=== PATIENT | female | born 1985 | race Caucasian/White ===

== ENCOUNTER → 2016-09-03 | Outpatient (CLI) | payer OTHER ==
[~2016-09-03] MED LIST: PRENTAB26 PO
[2016-09-03 13:03] LABS: URINE APPEARANCE TURBID (CLEAR); URINE BILIRUBIN NEG (NEG); URINE COLOR YELLOW; URINE EPITHELIAL CELL AUTO >30 /lpf (0-5); URINE NITRITE NEG (NEG); URINE SPECIFIC GRAVITY 1.024 (1.000-1.030); UROBILINOGEN NEG (NEG)
[2016-09-03 13:10] LABS: MANUAL MICROSCOPIC REQUIRED? NO; REVIEW REQ? NO
== END | disposition home or self-care (01) ==
LOC: C.LABSPEC 11:14
PROVIDERS: ATTEND Obstetrics & Gynecology
DX: Z34.90 Encounter for supervision of normal pregnancy, unspecified, unspecified trimester (principal)

== ENCOUNTER → 2016-09-10 | Outpatient (CLI) | payer OTHER ==
[2016-09-10 11:46] LABS: BASO % 0.1 %; BASO ABS # 0.01 K/uL (0-0.2); COMPLETE YES; EOS % 0.4 %; IG% 0.1 %; LYMPH % 21.1 %; LYMPH ABS # 1.42 K/uL (1.2-3.4); MEAN CORPUSCULAR HEMOGLOBIN 28.8 pg (25-34); MEAN CORPUSCULAR HGB CONC 33.8 g/dl (32-36); MEAN PLATELET VOLUME 9.9 fL (7.4-10.4); MONO % 6.8 %; NEUT % 71.5 %; PLATELET COUNT 262 K/uL (130-400); RED BLOOD COUNT 4.59 M/uL (4.2-5.4); WHITE BLOOD COUNT 6.73 K/uL (4.8-10.8)
[2016-09-12 03:42] LABS: CHLAMYDIA TRACH RNA*** NOT DETECTED (NOT DETECTED); GC (NEIS GONORRHOEAE)RNA** NOT DETECTED (NOT DETECTED)
== END | disposition home or self-care (01) ==
LOC: C.LAB1850 10:43
PROVIDERS: ATTEND Obstetrics & Gynecology
DX: Z34.90 Encounter for supervision of normal pregnancy, unspecified, unspecified trimester (principal)

== ENCOUNTER → 2016-09-10 | Outpatient (CLI) | payer OTHER | END | disposition home or self-care (01) | LOC: C.PAPS 14:11 | PROVIDERS: ATTEND Obstetrics & Gynecology | DX: Z34.90 Encounter for supervision of normal pregnancy, unspecified, unspecified trimester (principal) ==

== ENCOUNTER → 2016-11-05 | Outpatient (CLI) | payer OTHER ==
[2016-11-05 14:25] LABS: GTGD 50 Grams
== END | disposition home or self-care (01) ==
LOC: C.LAB1850 11:38
PROVIDERS: ATTEND Obstetrics & Gynecology
DX: Z34.82 Encounter for supervision of other normal pregnancy, second trimester (principal)

== ENCOUNTER → 2017-01-28 | Outpatient (CLI) | payer OTHER ==
[2017-01-28 12:22] LABS: HEMATOCRIT 36.6 % (37-47)
[2017-01-28 12:27] LABS: URINE APPEARANCE CLEAR (CLEAR); URINE BILIRUBIN NEG (NEG); URINE COLOR YELLOW; URINE EPITHELIAL CELL AUTO >30 /lpf (0-5); URINE NITRITE NEG (NEG); URINE SPECIFIC GRAVITY 1.014 (1.000-1.030); UROBILINOGEN NEG (NEG)
[2017-01-28 12:37] LABS: MANUAL MICROSCOPIC REQUIRED? NO; REVIEW REQ? NO
[2017-01-28 15:04] LABS: GTGD 50 Grams
== END | disposition home or self-care (01) ==
LOC: C.LAB1850 09:48
PROVIDERS: ATTEND Obstetrics & Gynecology
DX: Z34.82 Encounter for supervision of other normal pregnancy, second trimester (principal)

== ENCOUNTER 2017-04-18 07:04 | Inpatient (IN) | payer OTHER ==
[~2017-04-18] VITALS: Ht 175.3 cm; Wt 126.4 kg
[2017-04-18] MEDS ORDERED: LACTATED RINGER'S 1000ML 1,000 ML IV PRN (07:44)
[2017-04-18] MEDS ORDERED: LACTATED RINGER'S 1000ML 1,000 ML IV SCH (07:44)
[2017-04-18] MEDS ORDERED: PENICILLIN G POTASSIUM IV 3 MU in DEXTROSE 5% 100ML 100 ML IV PRN (07:45)
[2017-04-18] MEDS ORDERED: BUPIVACAINE 0.25% 30 ML VIAL ONE (07:51)
[2017-04-18] MEDS ORDERED: EpHEDrine SULFATE INJ 50 MG/ML AMP ONE (07:51)
[2017-04-18] MEDS ORDERED: FENTANYL 2MCG/ML ROPIV 1.25MG/ML 100ML BAG EPI ONE (07:52)
[2017-04-18] MEDS ORDERED: PENICILLIN G POTASSIUM IV 6 MU in DEXTROSE 5% 250ML 250 ML IV SCH (08:00)
[2017-04-18] MEDS: FENTANYL CITRATE INJ 50 MCG/1 ML 2 ML VIAL ONE ×2 (08:12→09:20)
[2017-04-18 08:15] LABS: HEMATOCRIT 37.3 % (37-47); MEAN CELL VOLUME 81.6 fL (80-100); MEAN CORPUSCULAR HEMOGLOBIN 28.2 pg (25-34); MEAN CORPUSCULAR HGB CONC 34.6 g/dl (32-36); MEAN PLATELET VOLUME 10.1 fL (7.4-10.4); PLATELET COUNT 231 K/uL (130-400); RED BLOOD COUNT 4.57 M/uL (4.2-5.4)
[2017-04-18 08:32] VITALS: Ht 175.3 cm; Wt 126.4 kg
[2017-04-18] MEDS ORDERED: NALOXONE HCL INJ 1 MG in SODIUM CHLORIDE 0.9% 1000ML 1,000 ML IV PRN (08:47)
[2017-04-18] MEDS ORDERED: LACTATED RINGER'S 1000ML 500 ML IV PRN (08:47)
[2017-04-18] MEDS ORDERED: PROMETHAZINE HCL INJ 6.25 MG in SODIUM CHLORIDE 0.9% 50ML 50 ML IV PRN (09:00)
[2017-04-18] MEDS ORDERED: NALOXONE HCL 0.4 MG/1 ML VIAL/CARP IV PRN (09:00)
[2017-04-18] MEDS ORDERED: DiphenhydrAMINE HCL 50 MG/ML VIAL IV PRN (09:00)
[2017-04-18] MEDS ORDERED: FENTANYL 2MCG/ML ROPIV 1.25MG/ML 100ML BAG EPI PRN (09:00)
[2017-04-18] MEDS ORDERED: ONDANSETRON INJ 2 MG/ML 2 ML VIAL IV PRN (09:00)
[2017-04-18] MEDS ORDERED: EpHEDrine SULFATE INJ 50 MG/ML AMP IV PRN (09:00)
[2017-04-18] MEDS ORDERED: NALBUPHINE HCL INJ 10 MG/ML AMP IV PRN (09:00)
[2017-04-18] MEDS ORDERED: ONDANSETRON INJ 2 MG/ML 2 ML VIAL ONE (10:02)
[2017-04-18] MEDS ORDERED: NURSING VERBAL MED ORDER ONE (10:15)
[2017-04-18] MEDS ORDERED: ACETAMINOPHEN/CODEINE 300/30MG TAB PO PRN ×2 (10:30)
[2017-04-18] MEDS ORDERED: ACETAMINOPHEN 325 MG TAB PO PRN (10:30)
[2017-04-18] MEDS ORDERED: HYDROCORTISONE ACETATE 25 MG SUPP PR PRN (10:30)
[2017-04-18] MEDS ORDERED: LANOLIN OINT EXT PRN ×2 (10:30)
[2017-04-18] MEDS ORDERED: BENZOCAINE 20% AER SPR 82.5 GM CAN EXT PRN (10:30)
[2017-04-18] MEDS ORDERED: OXYTOCIN 30 UNITS/500ML NSS IV PRN (10:30)
--- NOTE | 2017-04-18 11:45 | DELIVERY SUMMARY ---
DATE OF OPERATION: 04/18/2017 FINDINGS: Viable female with Apgars of 8 and 9. Baby delivered over spontaneous midline second-degree laceration for thick meconium. Cord blood samples obtained. Cord donation kit obtained. Placenta delivered spontaneously. Midline laceration repaired with interrupted 4-0 Vicryl. ESTIMATED BLOOD LOSS: 300 mL. LABOR NOTE: The patient is a 31-year-old 3, para 2 with an EDC of 20 April, 39+ weeks gestational age, who was admitted in active labor. The patient states the contractions have begun earlier on the day of admission. She denied rupture of membranes or vaginal bleeding. The patient had a benign course. Her blood type A positive, antibody negative, rubella immune, hepatitis B negative. She had a normal 1-hour Glucola x2 and a positive urine GBS bacteria. Upon admission, the patient was 5 cm dilated, 100% effaced and -2 station, in active labor. Tracing was category 2. The patient requested an epidural which was placed by anesthesia. Because of the GBS, she was given penicillin 6 million units loading dose. Approximately an hour after the epidural, the patient felt the urge to push and was 9+ cm. Artificial rupture of membranes with thick meconium. The patient progressed rapidly to full dilatation, began her second stage. She pushed for 10 minutes, delivering a viable female infant. Good vigorous cry at , terminating meconium resuscitation. Cord blood samples obtained. Cord blood donation kit collected. Placenta delivered spontaneously. Inspection of the perineum showed a midline second-degree laceration which was repaired with interrupted 4-0 Vicryl sutures. Estimated blood loss 300 mL. Sponge, needle count was correct. I attest to the content of the Intraoperative Record and any orders documented therein. Any exception s are noted below.
--- NOTE | 2017-04-18 12:14 | Anesthesia Procedure Note ---
Anesthesia Epidural Removal Nt Date & Time Apr 18, 2017 at 12:13 Notes Mental Status: alert / awake / arousable, participated in evaluation Nausea / Vomiting: adequately controlled Pain: adequately controlled Airway Patency, RR, SpO2: stable & adequate BP & HR: stable & adequate Hydration State: stable & adequate Neuraxial Anesthesia: was administered Anesthetic Complications: no major complications apparent, pt satisfied with anesthetic care Epidural: removed without complications, with tip intact
[2017-04-18 13:20] VITALS: BP 124/71; PULSE 75; TEMP 37.3
[2017-04-18] MEDS: SUPERCREAM 0.870 % 15GM JAR EXT PRN (13:27)
[2017-04-18] MEDS: IBUPROFEN 600 MG TAB PO PRN ×3 (13:28→21:39)
[2017-04-18 16:15] VITALS: BP 127/74; PULSE 67; TEMP 36.9
[2017-04-18 19:35] VITALS: BP 119/74; PULSE 67; TEMP 37
[2017-04-18] MEDS: DOCUSATE SODIUM 100 MG CAP PO SCH (19:38)
[2017-04-18 23:50] VITALS: BP 127/77; PULSE 76; TEMP 36.9; O2SAT 98
[2017-04-19] MEDS: IBUPROFEN 600 MG TAB PO PRN ×4 (02:15→15:47)
[2017-04-19 04:00] VITALS: BP 119/73; PULSE 71; TEMP 36.6; O2SAT 97
[2017-04-19 07:15] LABS: HEMATOCRIT 35.6 % (37-47)
[2017-04-19 07:19] VITALS: BP 131/79; TEMP 36.7; O2SAT 97
--- NOTE | 2017-04-19 07:45 | Progress Note ---
Subjective Apr 19, 2017. Subjective conversation w/ patient, physical exam, chart review, lab review Ambulation: ambulating normally Voiding: no voiding problems Passing Gas: Yes Diet Tolerance: Regular Diet Lochia: Moderate Feeding Type: Breast Feeding Pain: CONTROLLED Review of Systems Respiratory: No shortness of breath Cardiac: No chest pain Abdomen: No nausea, No vomiting Female : No dysuria Objective Vital Signs Date Time Temp Pulse Resp B/P (MAP) Pulse Ox O2 Delivery O2 Flow Rate FiO2 04/19/17 07:19 36.7 20 131/79 (96) 97 Room Air 04/19/17 04:00 36.6 71 16 119/73 (88) 97 Room Air 04/18/17 23:50 36.9 76 18 127/77 (94) 98 Room Air 04/18/17 23:50 Room Air 04/18/17 19:35 37.0 67 18 119/74 (89) Room Air 04/18/17 16:15 Room Air 04/18/17 16:15 36.9 67 18 127/74 (91) Room Air 04/18/17 13:20 37.3 75 18 124/71 (88) Room Air 04/18/17 13:20 Room Air Physical Exam General Appearance: WELL-APPEARING, WD/WN, NO APPARENT DISTRESS Respiratory/Chest: lungs clear Cardiovascular: regular rate, rhythm Abdomen: normal bowel sounds, soft Fundus: Firm, Non-Tender, Relation to Umbilicus (AT LEVEL OF U) Extremities: no calf tenderness Laboratory Results Last 24 Hours Test 04/18/17 07:59 04/19/17 07:04 White Blood Count 10.80 K/uL Red Blood Count 4.57 M/uL Hemoglobin 12.9 g/dL 11.9 g/dL Hematocrit 37.3 % 35.6 % Mean Corpuscular Volume 81.6 fL Mean Corpuscular Hemoglobin 28.2 pg Mean Corpuscular Hemoglobin Concent 34.6 g/dl RDW Standard Deviation 41.2 fL RDW Coefficient of Variation 13.8 % Platelet Count 231 K/uL Mean Platelet Volume 10.1 fL Assessment and Plan Post- Day#: 1 Continue Routine Care: - Vital Signs reviewed and WNL. - Hemoglobin Reviewed. 11.9 TODAY - Blood Type: A+, GBS+, Rubella Immune. - Pt is doing well clinically. - Encourage Ambulation, Monitor and Control pain with Motrin PRN, Resume regular diet, Monitor Lochia - Encourage Breast Feeding. - Pt counselled on discharge instructions RAJNI DENNIS PGY1 FM RESIDENT Resident Physician Supervision Note: I interviewed and examined the patient. Discussed with Dr. Dennis and agree with findings and plan as documented in the note. Any exceptions or clarifications are listed here: [None] Documented By: Melvin Rowley
--- NOTE | 2017-04-19 07:46 | Discharge Instructions ---
Discharge Instructions Date of Service Apr 19, 2017. Admission Reason for Admission: Check Labor Discharge Discharge Diagnosis / Problem: VAGINAL DELIVERY Discharge Goals Goal(s): Routine recovery after delivery Medications Continue Dispensed Medications: supercream, dermaplast, tucks, lansinoh Activity Recommendations Activity Limitations: per Instructions/Follow-up section . Instructions / Follow-Up Instructions / Follow-Up ACTIVITY RECOMMENDATIONS: * Gradual return to full activity over the next 2-3 weeks. * No lifting - nothing heavier than baby over the next 2-3 weeks. * Do not engage in vigorous exercise, sexual activity or sports until cleared by your physician. * Do not drive or operate any motorized equipment until cleared by your physician. * You may shower/bathe daily. MEDICATIONS: For discomfort or pain, you may use Acetaminophen (Tylenol), Ibuprofen (Advil), or Naproxen (Aleve) following the package directions. For constipation you may use Colace following the package directions. BREAST CARE: If you are not breast feeding: * Wear a supportive bra 24 hours a day for one to two weeks. * Avoid stimulating your breasts and nipples as much as possible during the first few weeks after delivery. * When taking a shower, have the warm water hit your back, not breasts. * When your breasts feel full, apply ice packs. Usually three to four times a day helps ease the discomfort. * Take a mild pain medication (Tylenol / Motrin) when you are uncomfortable. If breast feeding: * Use breast milk to lubricate nipples. Lansinoh cream may be used for sore nipples. You do not need to remove cream prior to breast feeding. If using a different brand of cream, check the label for directions regarding removal of cream prior to nursing. * Wear a supportive bra. * If having problems with breasts or breast feeding, call a senior talent management consultant or your health care provider. EPISIOTOMY CARE: After delivery, if you have an episiotomy (stitches), the following steps will ease discomfort and aid healing. * For the first 24 hours after delivery, place ice packs next to your episiotomy to help reduce swelling. * After the first 24 hour-period, sitz baths, either portable or in the tub, are suggested. A shower with a shower arm sprayed over the episiotomy may be comforting. * [place] care should be done after each voiding and bowel movement. Squirt warm water from a plastic bottle over the perineum (region of the body between the anus and urinary opening) and pat dry. * Use Dermoplast to ease discomfort. Shake container. Kinde directly over the episiotomy. Place a Tucks on a clean sanitary pad next to your episiotomy. SPECIAL CARE INSTRUCTIONS: When you are discharged from the hospital, it is important for you to follow the instructions listed below: * During the first week at home, you should be able to care for yourself and your baby. In addition, the usual light household activities are encouraged. * Limit your activities to the way you feel. Do not try to clean the house or move furniture. Be sensible. * If you actively engage in sports and have done so up until the time of your delivery, you may resume these activities as soon as you feel able. This may take up to one month or even longer. Use good judgment. * Continue to take your vitamins for at least six weeks after the of your baby. * Your diet need not be limited unless you were on a special diet before your delivery. Breast-feeding mothers need around 2500 calories per day and at least 64-80 ounces of fluid per day (8 to 10 glasses). * You should eat foods from the four major food groups. Crash diets or fad diets are to be avoided. Eating lean meats, fresh fruits and vegetables, low-fat dairy products, high fiber foods and a regular exercise program, will help you get back to your pre- weight without putting your health at risk. * Constipation is sometimes a problem after delivery. Take a mild laxative as needed. If breast feeding, Milk of Magnesia is acceptable to use. You may use a suppository or Fleets enema if no episiotomy. * A daily shower or tub bath is suggested. Be sure to thoroughly and gently dry the perineum. * A bloody vaginal discharge will usually continue until around four weeks post . A small amount of bleeding may continue for as long as six weeks. Vaginal discharge changes from the bright red bleeding after delivery to pink then brownish and finally yellowish-pink before becoming white and disappearing. * Bleeding may increase with activity. Your first period may come in 4-8 weeks. If you are breast feeding, your period may be delayed even longer. * [place] (sex) can begin whenever both you and your partner feel comfortable and do not have any form of genital infection. It is recommended that you wait at least six weeks for internal and external healing to occur. If you have questions, please talk to your health care practitioner. A condom should be used to prevent infection and . * Foreplay, gentle intercourse and lubrication is very important the first several times to prevent pain. A water-based lubricant such as K-Y jelly or Astroglide may be used. * If you have RH negative blood and your baby is RH positive, you will receive RHOGAM by injection prior to discharge. The nurse will give you a card to keep with you that has the date and place that you received RHOGAM after delivery. * During your care, you had a Rubella screen done to check for the presence of rubella antibodies in your blood. If your test was negative, you will receive a Rubella vaccine prior to discharge. This vaccine may cause a fever, soreness at the injection site and flu-like symptoms. If these symptoms persist, notify your health care practitioner. is not advised for one month after a Rubella vaccine. * Verbalizes understanding of car seat law as reviewed with patient nursing. * Car Seat hand-out given and reviewed with patient by nursing. * Shaken baby information reviewed with patient by nursing. Call you doctor if: * Heavy bleeding (saturating several pads an hour) or passing clots the size of your fist. * A fever >101 degrees F (38.3 degrees C) on two occasions four hours apart and /or chills. * Unusual pain in the pelvic or vaginal areas. * "Baby Blues" lasting longer than two weeks. If you have any questions or concerns, call your health care practitioner at . FOLLOW UP VISIT: * Please call the office at to schedule a 6 week examination. It is important you keep this appointment. It is important for you to make arrangements for either yearly or twice yearly check-ups thereafter. Current Hospital Diet Patient's current hospital diet: Regular OB Diet Discharge Diet Recommended Diet: Regular Diet Pending Studies Studies pending at discharge: no Medical Emergencies . Who to Call and When: Medical Emergencies: If at any time you feel your situation is an emergency, please call 911 immediately. . Non-Emergent Contact Non-Emergency issues call your: Primary Care Provider . . "Provider Documentation" section prepared by Kanwal Dennis. . VTE Core Measure Inpt VTE Proph given/why not?: Treatment not indicated Resident Tracking Resident Involvement: Resident Care Provided Care Provided: OB Delivery
[2017-04-19] MEDS ORDERED: PRENATAL VITAMIN TAB PO SCH (08:00)
[2017-04-19] MEDS: DOCUSATE SODIUM 100 MG CAP PO SCH (08:22)
[2017-04-19] MEDS ORDERED: DIPHTHERIA/TETANUS/PERTUSSIS 0.5 ML SYR/VIAL IM. ONE (09:00)
[2017-04-19 15:40] VITALS: BP 136/78; PULSE 75; TEMP 36.6
[2017-04-19] MEDS: SUPERCREAM 0.870 % 15GM JAR EXT PRN (15:52)
[2017-04-19 17:15] VITALS: BP_DIAS 78; PULSE 75; TEMP 36.6
[2017-04-19] MEDS ORDERED: BISACODYL 5 MG TABEC PO SCH (20:00)
== END 2017-04-19 17:50 | disposition home or self-care (01) | DRG 775 ==
LOC: C.LD 07:04 → C.OPB 07:04 → C.LD 10:25 → C.OBG 13:02 → EDSTATUS 04-19 07:00
PROVIDERS: ADMIT Obstetrics & Gynecology; ATTEND Obstetrics & Gynecology
PROC: 10E0XZZ Delivery of Products of Conception, External Approach (ICD-10-PCS; principal; 2017-04-18)
PROC: 0KQM0ZZ Repair Perineum Muscle, Open Approach (ICD-10-PCS; principal; 2017-04-18)
DX: O70.1 Second degree perineal laceration during delivery (principal); Z22.330 Carrier of Group B streptococcus; Z3A.39 39 weeks gestation of pregnancy; Z37.0 Single live birth

== ENCOUNTER → 2017-08-29 | Outpatient (CLI) | payer OTHER ==
[2017-08-29 14:13] LABS: PREG INTERNAL NEGATIVE QC NEG CLEAR BACKGROUND; PREG INTERNAL POSITIVE QC POS CONTROL LINE
== END | disposition home or self-care (01) ==
LOC: C.LAB1850 12:45
DX: N92.0 Excessive and frequent menstruation with regular cycle (principal); Z30.430 Encounter for insertion of intrauterine contraceptive device